=== PATIENT | male | born 1970 | race Caucasian/White ===

== ENCOUNTER 2018-12-24 04:45 | Emergency (ER) | payer OTHER ==
[~2018-12-24] VITALS: Ht 170.2 cm; Wt 68.0 kg
--- NOTE | 2018-12-24 04:45 | NUR ---
PT AMBULATED TO CHAIR E. ESCORTED BY TERENCE VALERA.
[2018-12-24 04:55] VITALS: BP 130/78
--- NOTE | 2018-12-24 04:55 | NUR ---
48 Y/O MALE BIB [facility] [employer] COR ETOH WHILE DRIVING. ALSO C/O CP, DIZZINESS, SOB. PT BEING SEEN TO BE CLEARED FOR PREBOOK. PT HAS SLURRED SPEECH. DENIES DRINKING ALCOHOL WHILE DRIVING. AMBULATED INTO ED WITH STEADY GAIT. LUNGS CLEAR BILAT THROUGHOUT. O2SAT 96% RA. STATES 2/10 PAIN, "TIGHT." NON-RADIATING PAIN. PT IN CHAIR. [place] [employer] AT CHAIRSIDE. PT IN CUFFS. ER MD AWARE. CONTINFUE TO MONITOR. HX: HODGKINS LYMPHOMA, X2 STANT, CARDIOMYOPATHY, CAD, DEPRESSION
--- NOTE | 2018-12-24 06:37 | NUR ---
PT AMBULATED TO BED 9. ACCOMPANIED BY [place] [employer].
--- NOTE | 2018-12-24 07:10 | NUR ---
ASSUMED CARE OF PT FROM [facility]J MULLEN
--- NOTE | 2018-12-24 07:15 | NUR ---
LABS DRAWN AND GIVEN TO LAB.
[2018-12-24 07:34] LABS: BASOPHILS % (AUTO) 0.2 % (0.0-2.0); EOSINOPHILS % (AUTO) 0.2 % (0.0-4.0); HEMATOCRIT 29.6 % (36-52); HEMOGLOBIN 9.7 g/dL (12.0-18.0); LYMPHOCYTES # (AUTO) 1.7 K/uL (2.0-11.5); MEAN CORPUSCULAR HEMOGLOBIN 34 pg (27-31); MEAN CORPUSCULAR HGB CONC 33 g/dL (33-37); MONOCYTES # (AUTO) 0.7 K/uL (0.8-1.0); MONOCYTES % (AUTO) 9.6 % (1.7-9.3); NEUTROPHILS # (AUTO) 4.8 K/uL (1.8-7.7); PLATELET COUNT (AUTO) 415 K/uL (140-450); RED BLOOD CELL COUNT(AUTO) 2.85 MIL/uL (4.20-6.10); RED CELL DISTRIBUTION WIDTH 17.3 % (11.6-13.7); WHITE BLOOD COUNT (AUTO) 7.2 K/uL (4.8-10.8)
[2018-12-24 07:43] LABS: ANION GAP 17.8 (8-16); CARBON DIOXIDE 25.2 mmol/L (21-32); CREATININE 1.1 mg/dL (0.7-1.3)
[2018-12-24 07:47] LABS: PROTHROMBIN TIME 25.5 secs (10.8-13.4)
[2018-12-24 07:56] LABS: ALBUMIN 4.2 g/dL (3.4-5.0); TOTAL BILIRUBIN 0.2 mg/dL (0.0-1.0)
[2018-12-24 08:21] VITALS: BP 124/81
--- NOTE | 2018-12-24 08:21 | NUR ---
PATIENT ELOPED FROM FACILITY. DISCHARGE INSTRUCTIONS NOT GIVEN TO PATIENT. DR. RECIO NOTIFIED.
== END 2018-12-24 08:21 | disposition left against medical advice (07) ==
LOC: MED 04:45
DX: R07.89 Other chest pain (principal); R06.02 Shortness of breath; R05 Cough; I42.9 Cardiomyopathy, unspecified; I25.10 Atherosclerotic heart disease of native coronary artery without angina pectoris; F32.9 Major depressive disorder, single episode, unspecified; Z95.5 Presence of coronary angioplasty implant and graft
CPT/HCPCS: 36415; 71045; 80053; 83605; 83690; 83880; 84484; 85025; 85610; 87040; 93005; 99284